=== PATIENT | female | born 1990 | race American Indian/Alaskan Native ===

== ENCOUNTER 2016-12-18 01:04 | Emergency (ER) | payer OTHER ==
[2016-12-18] MEDS ORDERED: Sodium Chloride 0.9% 1,000 ML IV ONE (01:28)
[2016-12-18 02:26] LABS: CHLORIDE,CL 101 mmol/L (101-111); SODIUM,NA 138 mmol/L (135-145)
--- NOTE | 2016-12-18 02:30 | EDM.PDOC ---
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 PMHX. Spontaneous 2014 Onset: Today Onset Date: 12/18/16 Onset Time: 12:30 Duration: Hour(s): Location: Reports: Pelvis Quality: Reports: Ache (abdomen cramps) Severity: Moderate Improves with: Reports: None Worsens with: Reports: None Associated Symptoms: Reports: No Other Symptoms Bladder Pain Score (Numeric/FACES): 1 - Related Data Allergies Allergy/AdvReac Type Severity Reaction Status Date / Time amoxicillin Allergy Cannot Verified 12/18/16 01:59 TRAY DRIER OPERATOR Remember Home Meds: Home Meds . [No Known Home Meds] 12/18/16 [History] ED ROS GENERAL - Review of Systems Review Of Systems: See Below Constitutional: Reports: No Symptoms HEENT: Reports: No Symptoms Respiratory: Reports: No Symptoms Cardiovascular: Reports: No Symptoms Endocrine: Reports: No Symptoms GI/Abdominal: Reports: Abdominal Pain Musculoskeletal: Reports: No Symptoms Skin: Reports: No Symptoms Neurological: Reports: No Symptoms Psychiatric: Reports: No Symptoms Immunologic: Reports: No Symptoms ED EXAM - Physical Exam Exam: See Below Exam Limited By: No Limitations General Appearance: Alert, WD/WN, No Apparent Distress, Anxious Eye Exam: Bilateral Eye: EOMI, PERRL Ears: Normal External Exam Nose: Normal Inspection Throat/Mouth: Normal Inspection Head: Atraumatic Neck: Normal Inspection Respiratory/Chest: No Respiratory Distress Cardiovascular: Normal Peripheral Pulses GI/Abdominal Exam: Normal Bowel Sounds, Soft, Tender (min low mid abdomen) (Female) Exam: Other (No active bleeding. Dark clot in cervical os. Os closed) Extremities: Normal Inspection Neurological: Alert, Oriented, CN II-XII Intact Psychiatric: Anxious Skin Exam: Warm, Dry, Intact Lymphatic: No Adenopathy Course - Vital Signs Last Recorded V/S: Last Vital Signs Temp 36.6 C 12/18/16 01:07 TRAY DRIER OPERATOR Pulse 89 12/18/16 01:07 TRAY DRIER OPERATOR Resp 19 12/18/16 01:07 TRAY DRIER OPERATOR BP 127/81 12/18/16 01:07 TRAY DRIER OPERATOR Pulse Ox 100 12/18/16 01:07 TRAY DRIER OPERATOR - Orders/Labs/Meds Orders: Active Orders 24 hr Category Date Time Status ABO/RH TYPE [BBK] Stat Lab 12/18/16 02:00 Received COMPREHENSIVE METABOLIC PN,CMP [CHEM] Stat Lab 12/18/16 02:00 Results HCG QUALITATIVE,SERUM [CHEM] Stat Lab 12/18/16 02:00 Results HCG QUANTITATIVE,SERUM [CHEM] Stat Lab 12/18/16 02:00 Received URINALYSIS W/MICROSCOPIC [UA W/MICROSCOPIC] [URIN] Stat Lab 12/18/16 02:09 Results Labs: Laboratory Tests 12/18/16 12/18/16 12/18/16 Range/Units 02:00 02:00 02:09 WBC 8.3 (5.0-10.0) 10^3/uL RBC 4.11 L (4.2-5.4) 10^6/uL Hgb 11.7 L (12.0-16.0) g/dL Hct 35.7 L (37.0-47.0) % MCV 86.9 (80-100) fL MCH 28.5 (27.0-34.0) pg MCHC 32.8 L (33.0-35.0) g/dL Plt Count 345 (150-450) 10^3/uL Neut % (Auto) 60.4 (42.2-75.2) % Lymph % (Auto) 25.5 (20.5-50.1) % [place] % (Auto) 8.5 H (2-8) % Eos % (Auto) 5.4 H (1.0-3.0) % Baso % (Auto) 0.2 (0.0-1.0) % Sodium 138 (135-145) mmol/L Potassium 3.5 L (3.6-5.0) mmol/L Chloride 101 (101-111) mmol/L Carbon Dioxide 27.0 (21.0-31.0) mmol/L Anion Gap 13.5 BUN 10 (7-18) mg/dL Creatinine 0.6 (0.6-1.3) mg/dL Est Cr Clr Drug Dosing TNP Estimated GFR (MDRD) > 60 BUN/Creatinine Ratio 16.66 Glucose 91 (74-105) mg/dL Calcium 8.9 (8.4-10.2) mg/dl Total Bilirubin 0.4 (0.2-1.0) mg/dL AST 21 (10-42) IU/L ALT 15 (10-60) IU/L Alkaline Phosphatase 55 (42-121) IU/L Total Protein 7.3 (6.7-8.2) g/dl Albumin 4.1 (3.2-5.5) g/dl Globulin 3.2 Albumin/Globulin Ratio 1.28 Urine Color (YELLOW) Urine Appearance (CLEAR) Urine pH (5.0-9.0) Ur Specific [place] (1.005-1.030) Urine Protein (NEGATIVE) Urine Glucose (UA) (NEGATIVE) Urine Ketones (NEGATIVE) Urine Occult Blood (NEGATIVE) Urine Nitrite (NEGATIVE) Urine Bilirubin (NEGATIVE) Urine Urobilinogen (0.2-1.0) mg/dL Ur Leukocyte Esterase (NEGATIVE) Urine HCG, Qual Positive Urine Opiates Screen (NEGATIVE) Ur Oxycodone Screen (NEGATIVE) Urine Methadone Screen (NEGATIVE) Ur Barbiturates Screen (NEGATIVE) U Tricyclic Antidepress (NEGATIVE) Ur Phencyclidine Scrn (NEGATIVE) Ur Amphetamine Screen (NEGATIVE) U Methamphetamines Scrn (NEGATIVE) Urine MDMA Screen (NEGATIVE) U Benzodiazepines Scrn (NEGATIVE) Urine Cocaine Screen (NEGATIVE) U Marijuana (THC) Screen (NEGATIVE) 12/18/16 12/18/16 Range/Units 02:09 02:09 WBC (5.0-10.0) 10^3/uL RBC (4.2-5.4) 10^6/uL Hgb (12.0-16.0) g/dL Hct (37.0-47.0) % MCV (80-100) fL MCH (27.0-34.0) pg MCHC (33.0-35.0) g/dL Plt Count (150-450) 10^3/uL Neut % (Auto) (42.2-75.2) % Lymph % (Auto) (20.5-50.1) % [place] % (Auto) (2-8) % Eos % (Auto) (1.0-3.0) % Baso % (Auto) (0.0-1.0) % Sodium (135-145) mmol/L Potassium (3.6-5.0) mmol/L Chloride (101-111) mmol/L Carbon Dioxide (21.0-31.0) mmol/L Anion Gap BUN (7-18) mg/dL Creatinine (0.6-1.3) mg/dL Est Cr Clr Drug Dosing Estimated GFR (MDRD) BUN/Creatinine Ratio Glucose (74-105) mg/dL Calcium (8.4-10.2) mg/dl Total Bilirubin (0.2-1.0) mg/dL AST (10-42) IU/L ALT (10-60) IU/L Alkaline Phosphatase (42-121) IU/L Total Protein (6.7-8.2) g/dl Albumin (3.2-5.5) g/dl Globulin Albumin/Globulin Ratio Urine Color Dark yellow (YELLOW) Urine Appearance Slightly cloudy (CLEAR) Urine pH 7.5 (5.0-9.0) Ur Specific [place] 1.020 (1.005-1.030) Urine Protein 30 H (NEGATIVE) Urine Glucose (UA) Negative (NEGATIVE) Urine Ketones Negative (NEGATIVE) Urine Occult Blood Large H (NEGATIVE) Urine Nitrite Negative (NEGATIVE) Urine Bilirubin Negative (NEGATIVE) Urine Urobilinogen 0.2 (0.2-1.0) mg/dL Ur Leukocyte Esterase Negative (NEGATIVE) Urine HCG, Qual Urine Opiates Screen Negative (NEGATIVE) Ur Oxycodone Screen Negative (NEGATIVE) Urine Methadone Screen Negative (NEGATIVE) Ur Barbiturates Screen Negative (NEGATIVE) U Tricyclic Antidepress Negative (NEGATIVE) Ur Phencyclidine Scrn Negative (NEGATIVE) Ur Amphetamine Screen Negative (NEGATIVE) U Methamphetamines Scrn Positive H (NEGATIVE) Urine MDMA Screen Negative (NEGATIVE) U Benzodiazepines Scrn Negative (NEGATIVE) Urine Cocaine Screen Negative (NEGATIVE) U Marijuana (THC) Screen Negative (NEGATIVE) Meds: Medications Discontinued Medications Generic Name Dose Route Start Last Admin Trade Name Freq PRN Reason Stop Dose Admin Sodium Chloride 1,000 mls @ 999 mls/hr 12/18/16 01:28 TRAY DRIER OPERATOR Normal Saline IV 12/18/16 02:28 .BOLUS ONE Departure - Departure Time of Disposition: 02:50 Disposition: Home, Self-Care 01 Condition: Good Clinical Impression: Threatened Drug use affecting Qualifiers: Trimester: first trimester Qualified Code(s): O99.321 - Drug use complicating , first trimester - Discharge Information Forms: ED Department Discharge Additional Instructions: Rest Increase intake of Fluids ( Water / Juice) STOP ALL STREET DRUGS OF ABUSE REPEAT Beta-HCG serum Quantitative on 2016 Take Daily Vitamin F/U w/ PCP on 2016 - My Orders Last 24 Hours: My Active Orders 12/18/16 02:00 ABO/RH TYPE [BBK] Stat COMPREHENSIVE METABOLIC PN,CMP [CHEM] Stat HCG QUALITATIVE,SERUM [CHEM] Stat HCG QUANTITATIVE,SERUM [CHEM] Stat 12/18/16 02:09 URINALYSIS W/MICROSCOPIC [UA W/MICROSCOPIC] [URIN] Stat - Assessment/Plan Last 24 Hours: My Active Orders 12/18/16 02:00 ABO/RH TYPE [BBK] Stat COMPREHENSIVE METABOLIC PN,CMP [CHEM] Stat HCG QUALITATIVE,SERUM [CHEM] Stat HCG QUANTITATIVE,SERUM [CHEM] Stat 12/18/16 02:09 URINALYSIS W/MICROSCOPIC [UA W/MICROSCOPIC] [URIN] Stat
== END 2016-12-18 03:03 | disposition home or self-care (01) ==
LOC: DL.ED 01:04
DX: O20.0 Threatened abortion (principal); O99.321 Drug use complicating pregnancy, first trimester; Z88.1 Allergy status to other antibiotic agents
CPT/HCPCS: 36415; 80053; 80305; 81001; 81025; 84702; 85025; 86900; 86901; 87070; 99283

== ENCOUNTER 2020-08-27 19:52 | Emergency (ER) | payer MEDICAID ==
[2020-08-27] MEDS ORDERED: Clindamycin HCl 150 MG Cap PO ONE (19:53)
--- NOTE | 2020-08-27 20:13 | EDM.PDOC ---
ED HPI GENERAL MEDICAL PROBLEM - General Stated Complaint: LEFT FOOT PAIN BLISTER,BOIL, RED, SWOLLEN Time Seen by Provider: 08/27/20 20:05 Source of Information: Reports: Patient History Limitations: Reports: No Limitations - History of Present Illness INITIAL COMMENTS - FREE TEXT/NARRATIVE: ED with left ankle pain swelling, redness, open sore startign Monday from blister. Hx skin infections in past Had clindamycin at home left ovr from prior infection in past so took two tablets today. Tyelnol not controlling pain. No fever. Rash itchy on heels tried antifungal without relief. Left Foot Pain Score (Numeric/FACES): 6 - Related Data Allergies Allergy/AdvReac Type Severity Reaction Status Date / Time amoxicillin Allergy Rash Verified 08/28/18 16:43 Home Meds: Home Meds Ferrous Sulfate 325 mg PO DAILY 08/26/18 [History] #103/Iron Fumarate/Fa [ ] 1 tab PO DAILY 08/26/18 [History] Acetaminophen [Tylenol Extra Strength] 500 mg PO Q6HR PRN 08/28/18 [History] Buprenorphine [Subutex] 4 mg SL DAILY 08/28/18 [History] Docusate Sodium [Colace] 100 mg PO BID PRN #60 cap 09/01/18 [Rx] Ibuprofen [Motrin] 800 mg PO Q8H PRN #30 tablet 09/01/18 [Rx] clindamycin HCL [Cleocin] 300 mg PO QID #20 cap 09/01/18 [Rx] Past Medical History - Past Health History Medical/Surgical History: Denies 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 Chlamydia tx Social & Family History - Family History Family Medical History: No Pertinent Family History - Caffeine Use Caffeine Use: Reports: Coffee, Soda Other Caffeine Use: 2 cans/day ED ROS GENERAL - Review of Systems Review Of Systems: Comprehensive ROS is negative, except as noted in HPI. ED EXAM, GENERAL - Physical Exam Exam: See Below Exam Limited By: No Limitations General Appearance: Alert, Mild Distress Eye Exam: Bilateral Eye: EOMI Ears: Normal External Exam Nose: Normal Inspection Throat/Mouth: Normal Inspection Head: Atraumatic, Normocephalic Neck: Normal Inspection Respiratory/Chest: No Respiratory Distress Cardiovascular: Normal Peripheral Pulses, Regular Rate, Rhythm GI/Abdominal: Normal Bowel Sounds, Soft Extremities: Pedal Edema (left foot and ankle), Increased Warmth (left ankle) Neurological: Alert, Oriented Psychiatric: Normal Affect, Normal Mood Skin Exam: Warm, Dry, Rash (left outer heel), Tattoo(s), Wound/Incision (open lesion left mediallower leg 1.5cm, multiple bullous blisters plantar foot left argest 1.5 intact, smaller 3mm areas intact, foot ankle mild swelling. ) Course - Vital Signs Last Recorded V/S: Last Vital Signs Temp 98.4 F 08/27/20 20:15 Pulse 84 08/27/20 20:15 Resp 16 08/27/20 20:15 BP 117/72 08/27/20 20:15 Pulse Ox 100 08/27/20 20:15 - Orders/Labs/Meds Orders: Active Orders 24 hr Category Date Time Status CULTURE BLOOD [BC] Stat Lab 08/27/20 20:13 Received CULTURE WOUND [RM] Stat Lab 08/27/20 20:05 Received Labs: Laboratory Tests 08/27/20 08/27/20 08/27/20 Range/Units 20:13 20:13 20:13 WBC 14.5 H (5.0-10.0) 10^3/uL RBC 4.71 (4.2-5.4) 10^6/uL Hgb 13.2 D (12.0-16.0) g/dL Hct 40.0 (37.0-47.0) % MCV 84.9 D (80-100) fL MCH 28.0 (27.0-34.0) pg MCHC 33.0 (33.0-35.0) g/dL Plt Count 363 D (150-450) 10^3/uL Neut % (Auto) 68.5 (42.2-75.2) % Lymph % (Auto) 23.0 (20.5-50.1) % [place] % (Auto) 6.2 (2-8) % Eos % (Auto) 2.1 (1.0-3.0) % Baso % (Auto) 0.2 (0.0-1.0) % Sodium 143 (136-145) mmol/L Potassium 3.5 (3.5-5.1) mmol/L Chloride 104 (98-107) mmol/L Carbon Dioxide 28 (21-32) mmol/L Anion Gap 14.5 H (7-13) mEq/L BUN 8 (7-18) mg/dL Creatinine 0.75 (0.55-1.02) mg/dL Est Cr Clr Drug Dosing 85.96 mL/min Estimated GFR (MDRD) > 60 BUN/Creatinine Ratio 10.7 (No establ ref range) Glucose 99 (70-99) mg/dL Lactic Acid 1.1 (0.4-2.0) mmol/L Calcium 8.9 (8.5-10.1) mg/dL Total Bilirubin 0.3 (0.2-1.0) mg/dL AST 13 L (15-37) U/L ALT 22 (14-59) U/L Alkaline Phosphatase 73 (46-116) U/L Total Protein 8.3 H (6.4-8.2) g/dL Albumin 3.9 (3.4-5.0) g/dL Globulin 4.4 Albumin/Globulin Ratio 0.9 HCG, Qual /15/ Range/Units 20:13 WBC (5.0-10.0) 10^3/uL RBC (4.2-5.4) 10^6/uL Hgb (12.0-16.0) g/dL Hct (37.0-47.0) % MCV (80-100) fL MCH (27.0-34.0) pg MCHC (33.0-35.0) g/dL Plt Count (150-450) 10^3/uL Neut % (Auto) (42.2-75.2) % Lymph % (Auto) (20.5-50.1) % Scott % (Auto) (2-8) % Eos % (Auto) (1.0-3.0) % Baso % (Auto) (0.0-1.0) % Sodium (136-145) mmol/L Potassium (3.5-5.1) mmol/L Chloride (98-107) mmol/L Carbon Dioxide (21-32) mmol/L Anion Gap (7-13) mEq/L BUN (7-18) mg/dL Creatinine (0.55-1.02) mg/dL Est Cr Clr Drug Dosing mL/min Estimated GFR (MDRD) BUN/Creatinine Ratio (No establ ref range) Glucose (70-99) mg/dL Lactic Acid (0.4-2.0) mmol/L Calcium (8.5-10.1) mg/dL Total Bilirubin (0.2-1.0) mg/dL AST (15-37) U/L ALT (14-59) U/L Alkaline Phosphatase (46-116) U/L Total Protein (6.4-8.2) g/dL Albumin (3.4-5.0) g/dL Globulin Albumin/Globulin Ratio HCG, Qual Negative Meds: Medications Discontinued Medications Generic Name Dose Route Start Last Admin Trade Name Freq PRN Reason Stop Dose Admin Diphenhydramine HCl 25 mg 08/27/20 20:25 08/27/20 20:40 Diphenhydramine 50 Mg/Ml Sdv IVPUSH 08/27/20 20:26 25 mg ONETIME ONE Administration Vancomycin HCl 1,150 mg/ 250 mls @ 166.667 mls/hr 08/27/20 20:25 08/27/20 20:40 Sodium Chloride IV 08/27/20 21:54 166.667 mls/hr ONETIME ONE Administration Ketorolac Tromethamine 30 mg 08/27/20 20:25 08/27/20 20:38 Ketorolac 30 Mg/Ml Sdv IVPUSH 08/27/20 20:26 30 mg ONETIME ONE Administration Departure - Departure Time of Disposition: 22:17 Disposition: Home, Self-Care 01 Condition: Good Clinical Impression: Abscess Cellulitis Qualifiers: Site of cellulitis: extremity Site of cellulitis of extremity: lower extremity Laterality: left Qualified Code(s): L03.116 - Cellulitis of left lower limb - Discharge Information *PRESCRIPTION DRUG MONITORING PROGRAM REVIEWED*: No *COPY OF PRESCRIPTION DRUG MONITORING REPORT IN PATIENT RADHA: No Instructions: Skin Abscess, [id number], Cellulitis, Adult, [id number] Additional Instructions: keep open draining areas covered with dressing wash sores at least twice daily with warm soapy water pat dry mupirocin ointment twice daily elevate weight bearing left as tolerated shes wiht sock, open to air at night clinic Monday, call in am to schedule follow up sooner fever/ chills, increased swelling and redness clindamycin 300mg 3 times daily alternate tylenol 500mg and ibuprofen 600mg every 4 hours as needed for discomfort Sepsis Event Note (ED) - Focused Exam Vital Signs: Vital Signs Temp Pulse Resp BP Pulse Ox 08/27/20 20:15 98.4 F 84 16 117/72 100 - My Orders Last 24 Hours: My Active Orders 08/27/20 20:05 CULTURE WOUND [RM] Stat 08/27/20 20:13 CULTURE BLOOD [BC] Stat - Assessment/Plan Last 24 Hours: My Active Orders 08/27/20 20:05 CULTURE WOUND [RM] Stat 08/27/20 20:13 CULTURE BLOOD [BC] Stat
[2020-08-27] MEDS ORDERED: Ketorolac 30 MG/ML SDV IVPUSH ONE (20:25)
[2020-08-27] MEDS ORDERED: diphenhydrAMINE 50 MG/ML SDV IVPUSH ONE (20:25)
[2020-08-27 20:49] LABS: ANION GAP 14.5 mEq/L (7-13); CHLORIDE,CL 104 mmol/L (98-107); SODIUM,NA 143 mmol/L (136-145)
[2020-08-27] MEDS ORDERED: Clindamycin HCl 150 MG Cap ONE (22:19)
[2020-08-27] MEDS ORDERED: Mupirocin Oint 22 GM Tube ONE (22:19)
== END 2020-08-27 22:33 | disposition home or self-care (01) ==
LOC: DL.ED 19:52
DX: L03.116 Cellulitis of left lower limb (principal); L02.416 Cutaneous abscess of left lower limb; Z88.0 Allergy status to penicillin
CPT/HCPCS: 36415; 80053; 83605; 84703; 85025; 87040; 87070; 87077; 87186; 96365; 96375; 99283; 99283-25; A9270-GY; J1200; J1885; J3370; J7050